=== PATIENT | male | born 1960 | race Caucasian/White ===

== ENCOUNTER → 2023-10-15 06:25 | Day surgery (SDC) | payer OTHER, SELFPAY ==
[2023-10-15 07:12] LABS: Glucose - Point of Care 139 mg/dl (70-99)
== END ==
LOC: GI 06:25
PROVIDERS: ATTENDING PHYSICIAN Specialist
DX: Z12.11 Encounter for screening for malignant neoplasm of colon (principal); K57.30 Diverticulosis of large intestine without perforation or abscess without bleeding; K62.1 Rectal polyp
CPT/HCPCS: 45380; 88305; 82962

== ENCOUNTER → 2024-02-03 17:06 | Outpatient (REF) | payer OTHER, SELFPAY | LOC: RAD 17:06 | PROVIDERS: ATTENDING PHYSICIAN Nurse Practitioner Family; FAMILY PHYSICIAN Family Medicine | DX: M79.671 Pain in right foot (principal) | CPT/HCPCS: 73630 ==